=== PATIENT | male | born 1955 | race Caucasian/White ===

== ENCOUNTER 2021-02-07 07:43 | Emergency (ER) | payer MEDICAID, OTHER ==
[~2021-02-07] VITALS: Ht 180.3 cm; Wt 108.9 kg
[2021-02-07 07:50] VITALS: BP_SYST 134
--- NOTE | 2021-02-07 07:54 | NUR ---
Patient to ER bed 4 to gown for evaluation. Side rails up. Report given to ENRRIQUE ESPNIOSA.
--- NOTE | 2021-02-07 08:00 | NUR ---
PT ARRIVES FROM HOME W/ AN ABCESS TO THE UPPER BACK. CURRENTLY 4/10 PAIN TO THE UPPER BACK
--- NOTE | 2021-02-07 08:10 | NUR ---
ER at bedside examining patient.
--- NOTE | 2021-02-07 08:20 | NUR ---
DR. LOWE DRAINING THE ABCESS AT THE BEDSIDE
[2021-02-07] MEDS ORDERED: SULF1TAB48 PO (08:24)
[2021-02-07 08:45] VITALS: BP_SYST 134
--- NOTE | 2021-02-07 08:46 | NUR ---
Patient given written and verbal discharge instructions and verbalizes understanding. ER MD discussed with patient the results and treatment provided. Patient in stable condition. ID arm band removed. Rx of BACTRIM given. Patient educated on pain management and to follow up with PMD. Pain Scale 3/10. Opportunity for questions provided and answered. Medication side effect fact sheet provided.
== END 2021-02-07 08:46 | disposition home or self-care (01) ==
LOC: SED 07:43
DX: L02.212 Cutaneous abscess of back [any part, except buttock and flank] (principal); J45.909 Unspecified asthma, uncomplicated; Z79.899 Other long term (current) drug therapy
CPT/HCPCS: 99284

== ENCOUNTER 2021-02-10 16:21 | Emergency (ER) | payer OTHER ==
[~2021-02-10] VITALS: Ht 180.3 cm; Wt 108.9 kg
[~2021-02-10 16:21] MED LIST: SULF1TAB48 PO
[2021-02-10 17:09] VITALS: BP_SYST 124
[2021-02-10] MEDS ORDERED: MORPHINE 4 MG INJ. 4 MG/ML VIAL IM ONE (19:00)
[2021-02-10 19:07] LABS: BILIRUBIN,URINE NEGATIVE (NEGATIVE); BLOOD, URINE NEGATIVE (NEGATIVE); CLARITY/URINE CLEAR (CLEAR); COLOR,URINE YELLOW (YELLOW); GLUCOSE,URINE 3+ (NEGATIVE); KETONES,URINE NEGATIVE (NEGATIVE); LEUKOCYTE ESTERASE ,URINE NEGATIVE (NEGATIVE); NITRITE, URINE NEGATIVE (NEGATIVE); PROTEIN URINE NEGATIVE (NEGATIVE); UROBILINOGEN,URINE 0.2 (0.2-1.0)
[2021-02-10 19:13] LABS: BASOPHILS # (AUTO) 0.1 K/uL (0.0-0.2); BASOPHILS % (AUTO) 1.2 % (0.0-2.0); EOSINOPHILS # (AUTO) 0.4 K/uL (0.0-0.4); EOSINOPHILS % (AUTO) 5.3 % (0.0-4.0); HEMATOCRIT 43.9 % (36-54); HEMOGLOBIN 14.7 g/dL (14.0-18.0); LYMPHOCYTES # (AUTO) 2.1 K/uL (1.0-5.5); LYMPHOCYTES % (AUTO) 29.9 % (20.5-51.5); MEAN CORPUSCULAR HEMOGLOBIN 27 pg (27-31); MEAN CORPUSCULAR HGB CONC 33 % (32-36); MEAN CORPUSCULAR VOLUME 82 fL (79.0-98.0); MONOCYTES # (AUTO) 0.6 K/uL (0.0-1.0); MONOCYTES % (AUTO) 8.2 % (1.7-9.3); NEUTROPHILS # (AUTO) 3.9 K/uL (1.8-7.7); NEUTROPHILS % (AUTO) 55.4 % (40.0-70.0); PLATELET COUNT (AUTO) 346 K/uL (130-430); RED BLOOD CELL COUNT(AUTO) 5.34 MIL/uL (4.2-6.2); WHITE BLOOD COUNT (AUTO) 7.1 K/uL (4.8-10.8)
[2021-02-10 19:23] LABS: CALCIUM 8.8 mg/dL (8.4-11.0); CREATININE 1.26 mg/dL (0.55-1.30); POTASSIUM 4.5 mmol/L (3.5-5.1)
[2021-02-10 19:34] LABS: TOTAL BILIRUBIN 0.2 mg/dL (0.0-1.0)
[2021-02-10] MEDS ORDERED: GLU500 PO (19:40)
[2021-02-10 19:45] VITALS: BP_SYST 148
== END 2021-02-10 19:45 | disposition home or self-care (01) ==
LOC: SED 16:21
DX: Z48.00 Encounter for change or removal of nonsurgical wound dressing (principal); E11.9 Type 2 diabetes mellitus without complications; Z79.84 Long term (current) use of oral hypoglycemic drugs; Z79.899 Other long term (current) drug therapy
CPT/HCPCS: 36415; 80053; 81003; 82962; 85025; 99283

== ENCOUNTER 2021-02-13 03:15 | Emergency (ER) | payer OTHER ==
[~2021-02-13] VITALS: Ht 180.3 cm; Wt 108.9 kg
[2021-02-13 03:15] VITALS: BP_SYST 129
[~2021-02-13 03:15] MED LIST changes: +GLU500 PO
[2021-02-13] MEDS ORDERED: SULF1TAB48 PO (04:43)
[2021-02-13 04:50] VITALS: BP_SYST 129
== END 2021-02-13 04:50 | disposition home or self-care (01) ==
LOC: SED 03:15
DX: Z48.00 Encounter for change or removal of nonsurgical wound dressing (principal); Z79.899 Other long term (current) drug therapy; Z79.84 Long term (current) use of oral hypoglycemic drugs
CPT/HCPCS: 99283